=== PATIENT | female | born 2000 | race Asian ===

== ENCOUNTER 2025-07-14 19:13 | Emergency (ER) | payer OTHER ==
[2025-07-14 19:21] VITALS: BP 111/79; PULSE 98; RESP 18; TEMP 97.6; BMI 19.2
[2025-07-14] MEDS ORDERED: IBUPROFEN 600 MG TABLET (FP) PO ONE (20:32)
[2025-07-14] MEDS: IBUPROFEN 600 MG TABLET (FP) PO ONE (21:05)
== END 2025-07-14 21:29 | disposition home or self-care (01) ==
LOC: JERFT 19:13
DX: M79.671 Pain in right foot (principal)
CPT/HCPCS: 73630-TC-RT-FY; 99283-25